=== PATIENT | female | born 1980 | race Caucasian/White ===

== ENCOUNTER 2019-04-14 13:26 | Emergency (ER) | payer OTHER ==
[~2019-04-14] VITALS: Ht 160 cm; Wt 66.7 kg
[2019-04-14 13:33] VITALS: BP 137/98
[2019-04-14] MEDS ORDERED: PROZAC10 M1 PO (13:37)
[2019-04-14] MEDS ORDERED: ABILIFY10 MG PO (13:37)
[2019-04-14] MEDS ORDERED: LEVOXYL75 MCG PO (13:37)
[2019-04-14] MEDS ORDERED: WELLBUTRIN 75 M75 M1 PO (13:37)
[2019-04-14] MEDS ORDERED: ADDERALL 10 MG10 MG PO (13:37)
[2019-04-14 14:03] LABS: URINE BILIRUBIN NEGATIVE (Negative); URINE BLOOD NEGATIVE (Negative); URINE CLARITY CLEAR; URINE COLOR YELLOW; URINE GLUCOSE-RANDOM NEGATIVE (Negative); URINE KETONES NEGATIVE (Negative); URINE LEUKOCYTES-REFLEX NEGATIVE (Negative); URINE NITRITE-REFLEX NEGATIVE (Negative); URINE PROTEIN NEGATIVE (Negative); URINE UROBILINOGEN 0.2 E.U./dl (0.2-1.0)
[2019-04-14 14:10] LABS: AMP/METHAMP POSITIVE (Negative); BARBITURATES Negative (Negative); BENZODIAZEPINES Negative (Negative); COCAINE Negative (Negative); METHADONE Negative (Negative); OPIATES Negative (Negative); PCP Negative (Negative); THC POSITIVE (Negative)
[2019-04-14 14:12] LABS: ABSOLUTE BASOPHILS 0.1 thou/uL (0.0-0.2); ABSOLUTE EOSINOPHILS 0.1 thou/uL (0.0-0.7); ABSOLUTE LYMPHOCYTES 1.5 thou/uL (0.8-5.3); ABSOLUTE MONOCYTES 0.6 thou/uL (0.0-1.2); ABSOLUTE NEUTROPHILS 5.1 thou/uL (1.6-8.1); EOSINOPHILS 1.4 %; HEMOGLOBIN 13.7 gm/dL (12.0-15.0); LYMPHOCYTES 20.5 %; MCH 30.9 pg (26.0-34.0); MCHC 34.1 g/dL (28.0-37.0); MCV 90.6 fL (80.0-100.0); MONOCYTES 8.4 %; MPV 6.5 fl. (7.2-11.1); NUCLEATED RBCS 0 /100WBC; PLATELET COUNT* 467 thou/uL (150-400); POLYS 68.7 %; RBC 4.42 mil/uL (4.20-5.00); WBC 7.4 thou/uL (4.0-11.0)
[2019-04-14 14:17] LABS: CALCIUM 8.1 mg/dL (8.5-10.1); CREATININE 0.8 mg/dL (0.6-1.3); POTASSIUM 3.9 mmol/L (3.5-5.1)
[2019-04-14 14:21] LABS: ALBUMIN 4.2 g/dL (3.4-5.0); TOTAL BILIRUBIN 0.2 mg/dL (<0.1-1.0); TOTAL PROTEIN 7.8 g/dL (6.4-8.2)
--- NOTE | 2019-04-15 09:16 | EKG ---
[place] [address] ELECTROCARDIOGRAM REPORT Name: DARLEEN NOYOLA Room: [facility]#: [id number] Admission: 04/14/19 Attend Phys: Discharge: 04/14/19 Date of : 82 Date of Service: 04/14/19 133 Report #: [id number] THIS REPORT FOR: //name// [facility] ED Test Date: 2019-04-14 Test Time: 13:32:51 Pat Name: DARLEEN NOYOLA Department: Room: Gender: [employer] Consultant: [facility] : 1980 Requested By: Hitesh Pretty Order Number: [id number] Tommie MD: Jacoby Gomez Measurements Intervals [place] Rate: 87 P: 65 [place]: 144 QRS: 37 QRSD: 97 T: 30 QT: 359 QTc: 432 Interpretive Statements Sinus rhythm No previous ECG available for comparison Electronically Signed On 04-15-2019 9:15:50 [employer]OPH[employer]ORATORY CHIEF by Jacoby Gomez [email or web address] <ELECTRONICALLY SIGNED> By: Jacoby Gomez MD, [facility] 04/15/19 0915 133 1332 Jacoby Gomez MD, FACC /EPI
== END 2019-04-14 15:11 | disposition left against medical advice (07) ==
LOC: M.ERS 13:26
PROVIDERS: Physician Assistant
DX: F41.9 Anxiety disorder, unspecified (principal); F15.10 Other stimulant abuse, uncomplicated; E03.9 Hypothyroidism, unspecified; Z79.899 Other long term (current) drug therapy